=== PATIENT | female | born 2000 | race Caucasian/White ===

== ENCOUNTER 2020-01-29 16:23 | Emergency (ER) | payer SELFPAY ==
[2020-01-29 16:55] LABS: #Lymphocytes 1.6 thou/uL (1.20-3.40); #Monocytes 0.7 thou/uL (0.11-0.59); #Neutrophils 9.6 thou/uL (1.40-6.50); %Basophils 0.2 % (0.0-1.0); %Eosinophils 0.2 % (0.0-10.0); %Monocytes 5.7 % (0.0-4.0); %Neutrophils 80.9 % (31.0-61.0); Hemoglobin 12.3 g/dL (12.0-16.0); Mean Corpuscular HGB CONC 32.5 g/dL (32.0-36.0); Mean Corpuscular Hemoglobin 27.7 pg (25.0-35.0); Mean Corpuscular Volume 85.5 fL (78.0-98.0); Mean Platelet Volume 8.8 fL (7.4-10.4); Platelet Count 217 thou/uL (130-400); RBC Distribution Width 12.5 % (11.5-14.5); Red Blood Cell (RBC) Count 4.43 mill/uL (4.00-5.20); White Blood Cell (WBC) Count 11.9 thou/uL (4.8-10.8)
[2020-01-29 17:11] LABS: ALT (SGPT) 9 U/L (8-55); AST (SGOT) 15 U/L (5-30); Albumin 4.2 g/dL (3.5-5.0); Alkaline Phosphatase 63 U/L (40-100); Anion Gap 12 mmol/L (10-20); BUN (Urea Nitrogen) 8 mg/dL (8.4-21.0); Bilirubin, Total 0.4 mg/dL (0.2-1.2); Calc. Creatinine Clearance 0 mL/min (70-130); Calcium 9.1 mg/dL (7.8-10.44); Carbon Dioxide 23 mmol/L (22-29); Chloride 103 mmol/L (98-107); Estimated GFR-MDRD Greater than 90; Globulin 2.7 g/dL (2.4-3.5); Glucose 142 mg/dL (70-105); Potassium 3.6 mmol/L (3.5-5.1); Protein, Total 6.9 g/dL (6.0-8.3); Sodium 134 mmol/L (136-145)
--- NOTE | 2020-01-29 17:49 | ULT ---
TRANSABDOMINAL AND TRANSVAGINAL PELVIC ULTRASOUND WITH PARDO SCALE, COLOR FLOW AND SPECTRAL DOPPLER IM AGING. 01/29/20 HISTORY: Pelvic pain. FINDINGS: The uterus measures 8.5 x 5.2 x 6 cm. The right ovary measures 1.6 x 2.2 x 2.2 cm and the left ovary measures 3.4 x 2.5 x 2.6 cm. Flow is demonstrated to both ovaries. There is a small amount of free fluid in the posterior cul-de-sac. A single live intrauterine gestation is seen with measurements corresponding to an estimated gestatio nal age of 7 weeks, 2 days and [place] at 09/14/20. The crown-rump length measures 0.94 cm. Gestational sa c diameter 2.61 cm and yolk sac diameter is 0.33 cm. heart rate measures 139 beats per minute. There is a small amount of subchorionic hemorrhage. There is fluid in the lower uterine segment measu ring 9 x 2 x 3 mm on the initial images and this appears slightly larger at the end of the exam. IMPRESSION: 1. Single live IUP of 7 weeks, 2 days estimated gestational age and [place] at 09/14/20. 2. Small subchorionic hemorrhage. 3. Fluid in the lower uterine segment suspicious for hemorrhage. POS: OFF
[2020-01-29] MEDS ORDERED: Ondansetron PF 4 MG/2 ML Vial ONE (18:17)
== END 2020-01-29 19:30 | disposition home or self-care (01) ==
LOC: ERS 16:23
DX: O21.9 Vomiting of pregnancy, unspecified (principal); O20.8 Other hemorrhage in early pregnancy; Z3A.08 8 weeks gestation of pregnancy
CPT/HCPCS: 36415; 76856; 80053; 84702; 85025; 86900; 86901; 96365; 96375; J2405

== ENCOUNTER 2020-04-14 15:18 | Emergency (ER) | payer MEDICAID, SELFPAY ==
[2020-04-14 15:53] LABS: Bacteria/HPF 4+ HPF (None Seen); Bilirubin Negative (Negative); Blood, Urine Negative (Negative); Clarity Turbid (Clear); Glucose, Urine (Dipstick) Normal (Negative); Ketone, Urine Negative (Negative); Leukocyte 75 Leu/uL (Negative); Nitrite 2+ (Negative); Protein, Urine (Dipstick) Negative (Neg-Trace); RBC/HPF 0-3 HPF (0-3); Urobilinogen Normal mg/dL (Less than 2)
[2020-04-14 15:56] LABS: Pregnancy Test - Urine (BHCG) POSITIVE (Negative); Pregu Control Background? CLEAR/WHITE (CLR/WHITE); Pregu Control Bar Appear? YES (CONTROL BAR)
[2020-04-14 16:26] LABS: #Eosinphils 0.1 thou/uL (0.0-0.7); #Lymphocytes 2.1 thou/uL (1.20-3.40); #Monocytes 0.9 thou/uL (0.11-0.59); #Neutrophils 8.3 thou/uL (1.40-6.50); %Basophils 0.3 % (0.0-1.0); %Eosinophils 1.3 % (0.0-10.0); %Lymphocytes 18.3 % (28.0-48.0); %Monocytes 7.7 % (0.0-4.0); %Neutrophils 72.4 % (31.0-61.0); Hemoglobin 12.3 g/dL (12.0-16.0); Mean Corpuscular HGB CONC 34.8 g/dL (32.0-36.0); Mean Corpuscular Hemoglobin 30.7 pg (25.0-35.0); Mean Corpuscular Volume 88.1 fL (78.0-98.0); Mean Platelet Volume 8.6 fL (7.4-10.4); Platelet Count 219 thou/uL (130-400); RBC Distribution Width 12.1 % (11.5-14.5); White Blood Cell (WBC) Count 11.5 thou/uL (4.8-10.8)
[2020-04-14 16:41] LABS: BHCG - Serum POSITIVE (NEGATIVE); Pregs Control Background? CLEAR/WHITE (CLR/WHITE); Pregs Control Bar Appear? YES (CONTROL BAR)
[2020-04-14 16:45] LABS: ALT (SGPT) 12 U/L (8-55); AST (SGOT) 15 U/L (5-30); Albumin 3.5 g/dL (3.5-5.0); Alkaline Phosphatase 66 U/L (40-100); Anion Gap 10 mmol/L (10-20); BUN (Urea Nitrogen) 8 mg/dL (8.4-21.0); Bilirubin, Total 0.2 mg/dL (0.2-1.2); Calc. Creatinine Clearance 0 mL/min (70-130); Calcium 8.3 mg/dL (7.8-10.44); Carbon Dioxide 24 mmol/L (22-29); Chloride 104 mmol/L (98-107); Estimated GFR-MDRD Greater than 90; Globulin 2.9 g/dL (2.4-3.5); Glucose 79 mg/dL (70-105); Potassium 4.1 mmol/L (3.5-5.1); Protein, Total 6.4 g/dL (6.0-8.3); Sodium 134 mmol/L (136-145)
--- NOTE | 2020-04-14 19:44 | ULT ---
Complete obstetrical ultrasound INDICATION: Nausea and lower abdominal pain TECHNIQUE: Grayscale, M-mode Doppler and Doppler images were obtained of the abdomen and pelvis to ev aluate the patient's known . COMPARISON: First trimester obstetrical ultrasound dated January 29, 2020 FINDINGS: Number of gestations: Single. Presentation: Cephalic. Placental location: Posterior Previa: No evidence for previa. Cervical length: Approximately 3.7 cm GERTRUDE: Not recorded. cm. Qualitatively appear within normal limits. heart rate: 152 bpm. Biparietal diameter: 4.12cm, 18 weeks and 3 days, 82nd percentile. Head circumference: 14.9 cm, 18 weeks and 0 days, 60th percentile Abdominal circumference: 12.29 cm, 18 weeks and 0 days, 56 percentile Femoral length: 2.65cm, 18 weeks and 0 days, 58th percentile Estimated weight: 220 g +/- 33g 0 lbs. 8 oz. +/- 1 ounce, 64th percentile SURVEY: survey was not well seen. The average gestational age by ultrasound is 18 weeks and 1 daywith estimated due date of September 14. The estimated dates by clinical data is 17 weeks and 5 dayswith estimated due date of September 17, 2020. IMPRESSION: 1. Single live intrauterine gestation with size and dates as above. Recommend follow-up obstetrical u ltrasound in one to 2 weeks for a full survey evaluation. 2. No acute abnormality. 3. Previously seen subchorionic hemorrhage has resolved.
== END 2020-04-14 20:22 | disposition home or self-care (01) ==
LOC: ERS 15:18
DX: O99.891 Other specified diseases and conditions complicating pregnancy (principal); R10.9 Unspecified abdominal pain; Z3A.18 18 weeks gestation of pregnancy
CPT/HCPCS: 36415; 76815; 80053; 81003; 81015; 81025; 84703; 85025; 87077; 87086; 87186

== ENCOUNTER 2022-02-15 12:41 | Emergency (ER) | payer OTHER | END 2022-02-15 15:23 | disposition left against medical advice (07) | LOC: ERS 12:41 | DX: Z53.21 Procedure and treatment not carried out due to patient leaving prior to being seen by health care provider (principal) ==